=== PATIENT | male | born 1975 | race Caucasian/White ===

== ENCOUNTER → 2018-08-03 | Emergency (ER) | payer OTHER ==
[~2018-08-03] VITALS: Ht 167.6 cm; Wt 75.7 kg
[~2018-08-03] MED LIST: LOSARTAN POTASS25 MG; NIFEDIPINE XL30 MG PO
== END | disposition left against medical advice (07) ==
LOC: ER 00:05
DX: Z53.20 Procedure and treatment not carried out because of patient's decision for unspecified reasons (principal)

== ENCOUNTER 2019-10-19 23:25 | Emergency (ER) | payer OTHER ==
[~2019-10-19] VITALS: Ht 167.6 cm; Wt 72.6 kg
[2019-10-20] MEDS ORDERED: TUSNEL LIQUID178 ML PO (05:29)
[2019-10-20] MEDS ORDERED: ZITHROMAX500 MG PO (05:29)
[2019-10-20] MEDS ORDERED: MEDROLPACK PO (05:29)
[2019-10-20] MEDS ORDERED: PROAIR RESPICL90 MCG IH (05:29)
== END 2019-10-20 06:25 | disposition home or self-care (01) ==
LOC: ER 23:25
DX: B34.9 Viral infection, unspecified (principal); R50.9 Fever, unspecified; Z03.818 Encounter for observation for suspected exposure to other biological agents ruled out

== ENCOUNTER 2019-10-22 19:53 | Emergency (ER) | payer OTHER ==
[~2019-10-22] VITALS: Ht 167.6 cm; Wt 72.6 kg
[~2019-10-22 19:53] MED LIST changes: +MEDROLPACK PO; +PROAIR RESPICL90 MCG IH; +TUSNEL LIQUID178 ML PO; +ZITHROMAX500 MG PO
== END 2019-10-23 00:49 | disposition home or self-care (01) ==
LOC: ER 19:53
DX: U07.1 COVID-19 (principal)

== ENCOUNTER 2021-08-29 03:02 | Emergency (ER) | payer OTHER ==
[~2021-08-29] VITALS: Ht 167.6 cm; Wt 77.1 kg
[2021-08-29] MEDS ORDERED: COZAAR50 MG PO (03:15)
[2021-08-29] MEDS ORDERED: LEVOTHYROXINE25 MCG PO (03:16)
[2021-08-29] MEDS ORDERED: LIPITOR40 M1 PO (03:16)
[2021-08-29] MEDS ORDERED: NORVASC5 MG PO (03:16)
[2021-08-29] MEDS ORDERED: MEDROLPACK PO (07:16)
[2021-08-29] MEDS ORDERED: ACETAMINOPHEN650 M2 PO (07:16)
[2021-08-29] MEDS ORDERED: NORFLEX100MG PO (07:16)
== END 2021-08-29 07:40 | disposition home or self-care (01) ==
LOC: ER 03:02
DX: M54.2 Cervicalgia (principal); M54.50 Low back pain, unspecified; I10 Essential (primary) hypertension; Z88.6 Allergy status to analgesic agent